=== PATIENT | female | born 1970 | race African-American/Black ===

== ENCOUNTER 2017-05-03 13:05 | Emergency (ER) | payer OTHER, MEDICAID ==
[2017-05-03 17:48] VITALS: BP 124/78
== END 2017-05-03 17:48 | disposition home or self-care (01) ==
LOC: ED 13:05
DX: M25.552 Pain in left hip (principal); M79.7 Fibromyalgia; F43.10 Post-traumatic stress disorder, unspecified; F17.210 Nicotine dependence, cigarettes, uncomplicated; Z98.890 Other specified postprocedural states
CPT/HCPCS: 99406; J1100; J1885